=== PATIENT | male | born 1955 | race Caucasian/White ===

== ENCOUNTER 2024-01-26 08:09 | Outpatient (OUT) | payer OTHER, SELFPAY ==
[2024-01-26 08:47] LABS: Basophils Percent Auto 0.5 % (0.2-2.0); Eosinophils Absolute Auto 0.5 10^3/uL (0.0-0.7); Eosinophils Percent Auto 6.6 % (0.9-7.0); Hemoglobin 14.6 g/dL (14.0-18.0); Immature Granulocytes Abs Auto 0.05 10^3/uL (0.00-0.03); Immature Granulocytes Pct Auto 0.6 % (0.0-0.5); Lymphocytes Absolute Auto 2.8 10^3/uL (1.2-3.8); Lymphocytes Percent Auto 35.4 % (20.5-60.0); Mean Corpuscular Hemoglobin 34.8 pg (25.9-34.0); Mean Corpuscular Volume 102.6 fL (80.0-94.0); Mean Platelet Volume 9.8 fL (9.5-13.5); Monocytes Absolute Auto 0.8 10^3/uL (0.3-0.8); Monocytes Percent Auto 9.5 % (1.7-12.0); Neutrophils Absolute Auto 3.8 10^3/uL (1.4-6.5); Neutrophils Percent Auto 47.4 % (43.0-75.0); Platelet Count 326 10^3/uL (150-450); Red Blood Count 4.19 10^6/uL (4.70-6.10); Red Cell Distribution Width 12.9 % (11.0-15.0)
[2024-01-26 09:26] LABS: Alanine Aminotransferase 26 U/L (16-63); Albumin Globulin Ratio 1.1; Albumin Level 3.7 g/dL (3.4-5.0); Alkaline Phosphatase 83 U/L (46-116); Anion Gap 11.8; Aspartate Amino Transferase 16 U/L (15-37); BUN Creatinine Ratio 19.8; Bilirubin Total 0.6 mg/dL (0.2-1.0); Calcium 9.1 mg/dL (8.5-10.1); Carbon Dioxide 30.9 mmol/L (21.0-32.0); Chloride 106 mmol/L (98-107); Chol HDL Ratio 2.9; Cholesterol 160 mg/dL (<=200); Estimated GFR (African America >60 (>=60); Estimated GFR (Non-African Ame >60 (>=60); Globulin 3.3 g/dL; Glucose 96 mg/dL (74-106); HDL Cholesterol 55 mg/dL (40-60); LDL Cholesterol Calculated 85.8 mg/dL; Potassium 4.7 mmol/L (3.5-5.1); Sodium 144 mmol/L (136-145); Triglycerides 96 mg/dL (<=150); VLDL CHOLESTEROL 19.2 mg/dL
[2024-01-26 09:47] LABS: Prostate Specific Antigen Scrn 0.77 ng/mL (<=4.00)
== END 2024-01-26 08:10 | disposition home or self-care (01) ==
LOC: LAB 08:14
PROVIDERS: PCP Internal Medicine; Visit Provider Internal Medicine
DX: Z00.00 Encounter for general adult medical examination without abnormal findings (principal)
CPT/HCPCS: 36415; 80053; 80061; 85025; G0103

== ENCOUNTER 2024-02-14 08:13 | Outpatient (OUT) | payer OTHER, SELFPAY ==
--- OUTSIDE RECORDS SUMMARY | 2024-02-14 08:15 | XMS_ITS | CCD ---
Author Organization [facility] Care Team Providers Care Humane Agent Name Role Phone JULI, DR JAMES Admitting Sharona GONZALES, DR JAMES Attending Unavailable JULI, DR JAMES Primary Care Unavailable JULI, DR JAMES Consulting Manan Greene Unavailable Medications Current Medications Medication Drug Class(es) Dates Sig (Normalized) Sig (Original) doxycycline hyclate 100 mg oral capsule (1 source) Tetracycline-clas s Drug Start: 09-27-2023 take 1 capsule by mouth every twelve hours Doxycycline Hyclate 100 MG 1 capsule Orally Twice a day for 7 days Sep, Active 24 hr metoprolol succinate 25 mg extended release oral tablet (1 source) beta-Adrenergic Noman Start: 04-27-2022 take 1 tablet by mouth once daily Metoprolol Succinate ER 25 MG Metoprolol Succinate ER 25MG, Tablet Tablet daily # 45, 04/27/2022, Ref. x3. Active Oral daily for 0 Apr, Active Problems Active Problems Problem Classification Problem Date Documented Date Episodic/Chronic Acute bronchitis (2 sources) Acute bronchitis; Translations: [Acute bronchitis due to other specified organisms] Episodic Cardiac dysrhythmias (2 sources) Paroxysmal atrial fibrillation; Translations: [Paroxysmal atrial fibrillation] Onset: 01-31-2019 Chronic Chronic obstructive pulmonary disease and bronchiectasis (7 sources) Chronic obstructive pulmonary disease with acute lower respiratory infection; Translations: [Chronic obstructive pulmonary disease with (acute) lower respiratory infection] Onset: 01-31-2019 Chronic Conditions associated with dizziness or vertigo (2 sources) Benign paroxysmal positional vertigo; Translations: [Benign paroxysmal vertigo, bilateral] Onset: 05-21-2019 Episodic Essential hypertension (2 sources) Essential hypertension; Translations: [Essential (primary) hypertension] Chronic Late effects of cerebrovascular disease (2 sources) Residual cognitive deficit as late effect of cerebrovascular accident; Translations: [Unspecified symptoms and signs involving cognitive functions following cerebral infarction] Chronic Other circulatory disease (1 source) H/O: cardiovascular disease; Translations: [Personal history of other diseases of the circulatory system] Episodic Other circulatory disease (2 sources) History of cerebrovascular accident without residual deficits; Translations: [Personal history of transient ischemic attack (TIA), and cerebral infarction without residual deficits] Episodic Other circulatory disease (1 source) H/O: atrial fibrillation; Translations: [Personal history of other diseases of the circulatory system] Episodic Other hematologic conditions (1 source) Other specified diseases of blood and blood-forming organs; Translations: [Other specified diseases of blood and blood-forming organs] Onset: 05-06-2019 Chronic Other hereditary and degenerative nervous system conditions (1 source) Cerebellar ataxia; Translations: [Other cerebellar ataxia] Onset: 03-02-2019 Chronic Other injuries and conditions due to external causes (1 source) H/O: injury; Translations: [Personal history of other (healed) physical injury and trauma] Episodic Other nervous system disorders (1 source) Paresthesia; Translations: [Paresthesia of skin] Episodic Other nervous system disorders (1 source) Abnormal gait; Translations: [Unsteadiness on feet] Episodic Other nervous system disorders (1 source) Unsteadiness on feet; Translations: [Unsteady] Episodic Other nervous system disorders (1 source) Skin sensation disturbance; Translations: [Paresthesia of skin] Episodic Other upper respiratory disease (2 sources) Singers' nodes; Translations: [Nodules of vocal cords] Episodic Spondylosis; intervertebral disc disorders; other back problems (2 sources) Cervical spondylosis without myelopathy; Translations: [Other spondylosis with radiculopathy, cervical region] Chronic Substance-related disorders (3 sources) Tobacco user; Translations: [Nicotine dependence, cigarettes, uncomplicated] Onset: 02-04-2019 Chronic Unclassified (1 source) Exposure to acute respiratory syndrome coronavirus 2; Translations: [Contact with and (suspected) exposure to COVID-19] Past or Other Problems Problem Classification Problem Date Documented Da te Episodic/Chronic Administrative/social admission (1 source) Problem related to life management difficulty; Translations: [Other problems related to lifestyle] Onset: 07-03-2019 Episodic Bacterial infection; unspecified site (1 source) Bacterial infectious disease; Translations: [Bacterial infection, unspecified, in conditions classified elsewhere and of unspecified site] Onset: 02-11-2019 Episodic Disorders of lipid metabolism (1 source) Familial hypercholesterolemi a; Translations: [Familial hypercholesterolemi a] Resolved: 12-24-2020 Chronic Headache; including migraine (1 source) Headache; Translations: [Headache, unspecified] Onset: 05-06-2019 Episodic Malaise and fatigue (1 source) Malaise and fatigue; Translations: [Other malaise and fatigue] Onset: 05-06-2019 Episodic Other circulatory disease (1 source) Elevated blood-pressure reading without diagnosis of hypertension; Translations: [Elevated blood-pressure reading, without diagnosis of hypertension] Onset: 02-04-2019 Episodic Other nervous system disorders (1 source) Altered sensation of skin; Translations: [Disturbance of skin sensation] Onset: 05-06-2019 Episodic Other screening for suspected conditions (not mental disorders or infectious disease) (2 sources) Encounter for screening for malignant neoplasm of prostate; Translations: [Blood chemistry abnormal] Onset: 06-19-2022 Resolved: 11-10-2020 Episodic Other upper respiratory infections (1 source) Acute maxillary sinusitis; Translations: [Acute maxillary sinusitis, unspecified] Onset: 02-11-2019 Episodic Unclassified (1 source) 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 Diego Benitez Basophils/100 WBC (Bld) 0.7 % Normal 0.2-2.0 [facility] Comment on above: Performed By: #### C BC #### [facility] [address] [address] [address] Diego Benitez EO # 0.5 103/ul Normal 0.0-0.7 [facility] Comment on above: Performed By: #### C BC #### [facility] [address] [place] [address] Dr. Diego Benitez Eosinophils/100 WBC (Bld) 5.4 % Normal 0.9-7.0 [facility] Comment on above: Performed By: #### C BC #### [facility] [address] [place] [address] Dr. Diego Benitez Erythrocyte distribution width (RBC) [Ratio] 12.8 % Normal 11.0-15.0 [facility] Comment on above: Performed By: #### C BC #### [facility] [address] [place] [address] Dr. Diego Benitez Hematocrit (Bld) [Volume fraction] 43.5 % Normal 42.0-54.0 [facility] Comment on above: Performed By: #### C BC #### [facility] [address] [place] [address] Dr. Diego Benitez Hemoglobin (Bld) [Mass/Vol] 15.1 g/dL Normal 14.0-18.0 [facility] Comment on above: Performed By: #### C BC #### [facility] [address] [place] [address] Dr. Diego Benitez IG # 0.03 10e3/ul Normal 0.00-0.03 [facility] Comment on above: Performed By: #### C BC #### [facility] [address] [place] [address] Dr. Diego Benitez IG % 0.3 % Normal 0.0-0.5 [facility] Comment on above: Performed By: #### C BC #### [facility] [address] [place] [address] Dr. Diego Benitez LYMPH # 2.8 103/ul Normal 1.2-3.8 [facility] Comment on above: Performed By: #### C BC #### [facility] [address] [place] [address] Dr. Diego Benitez Lymphocytes/100 WBC (Bld) 32.5 % Normal 20.5-60.0 [facility] Comment on above: Performed By: #### C BC #### [facility] [address] [place] [address] Dr. Diego Benitez MANUAL DIFF REQ NO Normal [facility] Comment on above: Performed By: #### C BC #### [facility] [address] [address] [address] Diego Benitez MCH (RBC) [Entitic mass] 34.7 pg Critically high 25.9-34.0 [facility] Comment on above: Performed By: #### C BC #### [facility] [address] [address] [address] Diego Benitez MCHC (RBC) [Mass/Vol] 34.7 g/dL Normal 29.9-35.2 [facility] Comment on above: Performed By: #### C BC #### [facility] [address] [address] [address] Diego Benitez MCV (RBC) [Entitic vol] 100.0 fL Critically high 80.0-94.0 [facility] Comment on above: Performed By: #### C BC #### [facility] [address] [place] [address] Dr. Diego Benitez MONO # 0.9 103/ul Critically high 0.3-0.8 [facility] Comment on above: Performed By: #### C BC #### [facility] [address] [place] [address] Dr. Diego Benitez Monocytes/100 WBC (Bld) 10.1 % Normal 1.7-12.0 [facility] Comment on above: Performed By: #### C BC #### [facility] [address] [place] [address] Dr. Diego Benitez NEUT # 4.4 103/ul Normal 1.4-6.5 [facility] Comment on above: Performed By: #### C BC #### [facility] [address] [place] [address] Dr. Diego Benitez Neutrophils/100 WBC (Bld) 51.0 % Normal 43.0-75.0 [facility] Comment on above: Performed By: #### C BC #### [facility] [address] [place] [address] Dr. Diego Benitez Platelet mean volume (Bld) [Entitic vol] 9.7 fL Normal 9.5-13.5 [facility] Comment on above: Performed By: #### C BC #### [facility] [address] [address] [address] Diego Benitez PLT 329 103/ul Normal 150-450 [facility] Comment on above: Performed By: #### C BC #### [facility] [address] [address] [address] Diego Benitez RBC 4.35 106/ul Critically low 4.70-6.10 [facility] Comment on above: Performed By: #### C BC #### [facility] [address] [address] [address] Diego Benitez WBC 8.6 103/ul Normal 4.0-11.0 [facility] Comment on above: Performed By: #### C BC #### [facility] [address] [place] [address] Dr. Diego Benitez LIPID PROFILEon 06-14-2022 CHOL-HDL RATIO NORM SEE BELOW Normal [facility] Comment on above: Result Comment: 3.3 - 4.4 LOW RISK 4.4 - 7.1 AVERAGE RISK 7.1 - 11.0 MODERATE RISK >11.0 HIGH RISK Performed By: #### L IPID, CMP #### [facility] [address] [place] [address] Dr. Diego Benitez Cholesterol [Mass/Vol] 155 mg/dL Normal <=200 [facility] Comment on above: Performed By: #### L IPID, CMP #### [facility] [address] [place] [address] Dr. Diego Benitez Cholesterol in HDL [Mass/Vol] 51 mg/dL Normal 40-60 [facility] Comment on above: Performed By: #### L IPID, CMP #### [facility] [address] [place] [address] Dr. Diego Benitez Cholesterol in LDL [Mass/Vol] 87.2 mg/dL Normal [facility] Comment on above: Performed By: #### L IPID, CMP #### [facility] [address] [place] [address] Dr. Diego Benitez Cholesterol.total/Cho lesterol in HDL [Mass ratio] 3.0 {ratio} Normal [facility] Comment on above: Performed By: #### L IPID, CMP #### [facility] [address] [address] [address] Diego Benitez HDL NORMAL > or = 60 mg/dl - LOW CARDIOVASCULAR RISK <40 mg/dl - HIGH CARDIOVASCULAR RISK Normal [facility] Comment on above: Performed By: #### L IPID, CMP #### [facility] [address] [address] [address] Diego Benitez LDL CALC NORMAL SEE BELOW Normal [facility] Comment on above: Result Comment: <100 mg/dl OPTIMAL 100 - 129 mg/dl NEAR OR ABOVE OPTIMAL 130 - 159 mg/dl BORDERLINE HIGH 160 - 189 mg/dl HIGH >190 mg/dl VERY HIGH Performed By: #### L IPID, CMP #### [facility] [address] [address] [address] Diego Benitez Triglyceride [Mass/Vol] 84 mg/dL Normal <=150 [facility] Comment on above: Performed By: #### L IPID, CMP #### [facility] [address] [address] [address] Diego Benitez VLDL CALC 16.8 mg/dL Normal [facility] Comment on above: Performed By: #### L IPID, CMP #### [facility] [address] [address] [address] Diego Benitez PROF 14(COMP METB)on 022 Albumin [Mass/Vol] 4.1 g/dL Normal 3.4-5.0 [facility] Comment on above: Performed By: #### L IPID, CMP #### [facility] [address] [address] [address] Diego Benitez Albumin/Globulin [Mass ratio] 1.5 {ratio} Normal [facility] Comment on above: Performed By: #### L IPID, CMP #### [facility] [address] [address] [address] Diego Benitez ALP [Catalytic activity/Vol] 86 U/L Normal 46-116 [facility] Comment on above: Performed By: #### L IPID, CMP #### [facility] [address] [address] [address] Diego Benitez ALT [Catalytic activity/Vol] 20 U/L Normal 16-63 [facility] Comment on above: Performed By: #### L IPID, CMP #### [facility] [address] [address] [address] Diego Benitez Anion gap [Moles/Vol] 12.0 mmol/L Normal [facility] Comment on above: Performed By: #### L IPID, CMP #### [facility] [address] [address] [address] Diego Benitez AST [Catalytic activity/Vol] 16 U/L Normal 15-37 [facility] Comment on above: Performed By: #### L IPID, CMP #### [facility] [address] [address] [address] Diego Benitez Bilirubin [Mass/Vol] 0.7 mg/dL Normal 0.2-1.0 [facility] Comment on above: Performed By: #### L IPID, CMP #### [facility] [address] [address] [address] Diego Benitez Calcium [Mass/Vol] 9.2 mg/dL Normal 8.5-10.1 [facility] Comment on above: Performed By: #### L IPID, CMP #### [facility] [address] [address] [address] Diego Benitez Chloride [Moles/Vol] 106 mmol/L Normal 98-107 [facility] Comment on above: Performed By: #### L IPID, CMP #### [facility] [address] [address] [address] Diego Benitez CO2 [Moles/Vol] 27.3 mmol/L Normal 21.0-32.0 [facility] Comment on above: Performed By: #### L IPID, CMP #### [facility] [address] [address] [address] Deigo Benitez Creatinine [Mass/Vol] 1.13 mg/dL Normal 0.70-1.30 [facility] Comment on above: Performed By: #### L IPID, CMP #### [facility] [address] [address] [address] Diego Benitez EGFR-AF CYMRAES >60 Normal >=60 [facility] Comment on above: Performed By: #### L IPID, CMP #### [facility] [address] [address] [address] Diego Benitez EGFR-NON AF CYMRAES >60 Normal >=60 [facility] Comment on above: Performed By: #### L IPID, CMP #### [facility] [address] [address] [address] Diego Benitez Globulin (S) [Mass/Vol] 2.8 g/dL Normal [facility] Comment on above: Performed By: #### L IPID, CMP #### [facility] [address] [address] [address] Diego Benitez Glucose [Mass/Vol] 100 mg/dL Normal 74-106 [facility] Comment on above: Performed By: #### L IPID, CMP #### [facility] [address] [address] [address] Diego Benitez Potassium [Moles/Vol] 4.3 mmol/L Normal 3.5-5.1 [facility] Comment on above: Performed By: #### L IPID, CMP #### [facility] [address] [address] [address] Diego Benitez Protein [Mass/Vol] 6.9 g/dL Normal 6.4-8.2 [facility] Comment on above: Performed By: #### L IPID, CMP #### [facility] [address] [address] [address] Diego Benitez Sodium [Moles/Vol] 141 mmol/L Normal 136-145 [facility] Comment on above: Performed By: #### L IPID, CMP #### [facility] [address] [address] [address] Diego Benitez Urea nitrogen [Mass/Vol] 19.0 mg/dL Critically high 7.0-18.0 [facility] Comment on above: Performed By: #### L IPID, CMP #### [facility] [address] [address] [address] Diego Benitez Urea nitrogen/Creatinine [Mass ratio] 16.8 mg/mg Normal [facility] Comment on above: Performed By: #### L IPID, CMP #### [facility] [address] [address] [address] Diego Benitez A1C with Estimated Average G luon 05-24-2021 Glucose [Mass/Vol] 105 mg/dL Normal [facility] Comment on above: Result Comment: PERF ORMED BY: [place] [address] PATHOLOGIST GALLERY INTERN SHANA LUZ M.D. Performed By: #### T SH3, T4F, A1C WTH eA, ESR, HSCRP, [id number] #### [facility] [address] [place] [address] [place] #### RA, CERULOP, LYME ABS, RPR W RFX, HOMOCYS PL, CHAR CHOICE, VITB6, WEST ESDRAS, EDYTA,URINE, EDYTA SERUM, ZINC,WB, SPE, METH, UPE RAND #### [facility] , HbA1c (Bld) [Mass fraction] 5.3 % Normal 4.3-5.[address] [facility] Comment on above: Result Comment: Incr eased risk for diabetes: 5.7 - 6.4 diabetes: >6.4 glycemic control for adults with diabetes: <7.0 Performed By: #### T SH3, T4F, A1C WTH eA, ESR, HSCRP, [id number] #### [facility] [address] [place] [address] [place] #### RA, CERULOP, LYME ABS, RPR W RFX, HOMOCYS PL, CHAR CHOICE, VITB6, WEST ESDRAS, EDYTA,URINE, EDYTA SERUM, ZINC,WB, SPE, METH, UPE RAND #### [facility] , CHAR with Reflexon 05-24-2021 CHAR with Reflex Negative Normal Negative [facility] Comment on above: Order Comment: Speci men Comment: Test(s) [id number], Whole Blood Specimen Comment: was developed and its performance characteristics Specimen Comment: determined by [facility]. It has not been cleared or approved Specimen Comment: by the Food and Drug Administration. Specimen Comment: Test(s) [id number] B6 Specimen Comment: was developed and its performance characteristics Specimen Comment: determined by [facility]. It has not been cleared or approved Specimen Comment: by the Food and Drug Administration. Result Comment: Perf ormed at: [address] [id number] Network Strategist: Mikal Blanchard PhD, Phone: [phone] Performed By: #### T SH3, T4F, A1C WTH eA, ESR, HSCRP, [id number] #### [facility] [address] [place] [address] #### RA, CERULOP, LYME ABS, RPR W RFX, HOMOCYS PL, CHAR CHOICE, VITB6, WEST ESDRAS, EDYTA,URINE, EDYTA SERUM, ZINC,WB, SPE, METH, UPE RAND #### [facility] , Ceruloplasminon 05-24-2021 Ceruloplasmin 19.1 mg/dL Normal 16.0-31.[address] [facility] Comment on above: Order Comment: Speci men Comment: Test(s) [id number], Whole Blood Specimen Comment: was developed and its performance characteristics Specimen Comment: determined by [facility]. It has not been cleared or approved Specimen Comment: by the Food and Drug Administration. Specimen Comment: Test(s) [id number] B6 Specimen Comment: was developed and its performance characteristics Specimen Comment: determined by [facility]. It has not been cleared or approved Specimen Comment: by the Food and Drug Administration. Result Comment: Perf ormed at: [address] [id number] Network Strategist: Mikal Blanchard PhD, Phone: [phone] Performed By: #### T SH3, T4F, A1C WTH eA, ESR, HSCRP, [id number] #### [facility] [address] [place] [address] #### RA, CERULOP, LYME ABS, RPR W RFX, HOMOCYS PL, CHAR CHOICE, VITB6, WEST ESDRAS, EDYTA,URINE, EDYTA SERUM, ZINC,WB, SPE, METH, UPE RAND #### [facility] , Erythrocyte Sedimentation Ra celeste 05-24-2021 ESR (Bld) [Velocity] 2 mm/h Normal 0-19 [facility] Comment on above: Result Comment: PERF ORMED BY: [place] [address] PATHOLOGIST GALLERY INTERN SHANA LUZ M.D. Performed By: #### T SH3, T4F, A1C WTH eA, ESR, HSCRP, [id number] #### [address] #### RA, CERULOP, LYME ABS, RPR W RFX, HOMOCYS PL, CHAR CHOICE, VITB6, WEST ESDRAS, EDYTA,URINE, EDYTA SERUM, ZINC,WB, SPE, METH, UPE RAND #### [facility] , Free T4 (Free Thyroxine)on 0 05-24-2021 Free T4 [Mass/Vol] 0.82 ng/dL Normal 0.61-1.12 [facility] Comment on above: Performed By: #### T SH3, T4F, A1C WTH eA, ESR, HSCRP, [id number] #### [facility] [address] [place] [address] #### RA, CERULOP, LYME ABS, RPR W RFX, HOMOCYS PL, CHAR CHOICE, VITB6, WEST ESDRAS, EDYTA,URINE, EDYTA SERUM, ZINC,WB, SPE, METH, UPE RAND #### [facility] , High Sensitive CRPon 021 High Sensitive CRP 0.5 mg/L Normal [facility] Comment on above: Result Comment: Card iovascular Risk Classification (AHA/CDC) hsCRP < 1.0 mg/l low relative risk for CVD hsCRP 1.0-3.0 mg/l average relative risk for CVD hsCRP > 3.0 mg/l high relative risk for CVD hsCRP > 7.5 mg/l active inflammation* Two results two weeks apart and averaged provide a more stable estimate of hsCRP level. *hsCRP levels > 7.5 mg/l may suggest infection that can limit the use of this marker for estimation of CVD risk. PERFORMED BY: [place] [address] PATHOLOGIST GALLERY INTERN SHANA LUZ M.D. Performed By: #### T SH3, T4F, A1C WTH eA, ESR, HSCRP, [id number] #### [address] #### RA, CERULOP, LYME ABS, RPR W RFX, HOMOCYS PL, CHAR CHOICE, VITB6, WEST ESDRAS, EDYTA,URINE, EDYTA SERUM, ZINC,WB, SPE, METH, UPE RAND #### [facility] , Homocysteine, Plasma/Serumon 05-24-2021 Homocysteine, Plasma/Serum 12.5 umol/L Normal 0.0-17.[address] [facility] Comment on above: Order Comment: Speci men Comment: Test(s) [id number], Whole Blood Specimen Comment: was developed and its performance characteristics Specimen Comment: determined by [facility]. It has not been cleared or approved Specimen Comment: by the Food and Drug Administration. Specimen Comment: Test(s) [id number] B6 Specimen Comment: was developed and its performance characteristics Specimen Comment: determined by [facility]. It has not been cleared or approved Specimen Comment: by the Food and Drug Administration. Result Comment: Perf ormed at: - [facility] [address] [id number] Network Strategist: Mkial Blanchard PhD, Phone: [phone] Performed By: #### T SH3, T4F, A1C WTH eA, ESR, HSCRP, [id number] #### [place] [address] [place] #### RA, CERULOP, LYME ABS, RPR W RFX, HOMOCYS PL, CHAR CHOICE, VITB6, WEST ESDRAS, EDYTA,URINE, EDYTA SERUM, ZINC,WB, SPE, METH, UPE RAND #### [facility] , Immunofixation, (EDYTA), Urine on 05-24-2021 Immunofixation, (EDYTA), Urine Normal . [facility] Comment on above: Result Comment: No m onoclonality detected. Performed at: [address] [id number] Network Strategist: Mikal Blanchard PhD, Phone: [phone] Performed By: #### T SH3, T4F, A1C WTH eA, ESR, HSCRP, [id number] #### [address] #### RA, CERULOP, LYME ABS, RPR W RFX, HOMOCYS PL, CHAR CHOICE, VITB6, WEST ESDRAS, EDYTA,URINE, EDYTA SERUM, ZINC,WB, SPE, METH, UPE RAND #### [facility] , Immunofixation,Serumon 05-24 Immunofixation, Serum Normal . [facility] Comment on above: Order Comment: Speci men Comment: Test(s) 946565-Oabu, Whole Blood Specimen Comment: was developed and its performance characteristics Specimen Comment: determined by [facility]. It has not been cleared or approved Specimen Comment: by the Food and Drug Administration. Specimen Comment: Test(s) 824017-Qipwliq B6 Specimen Comment: was developed and its performance characteristics Specimen Comment: determined by [facility]. It has not been cleared or approved Specimen Comment: by the Food and Drug Administration. Result Comment: No m onoclonality detected. Performed By: #### T SH3, T4F, A1C WTH eA, ESR, HSCRP, [id number] #### [place] [address] [place] #### RA, CERULOP, LYME ABS, RPR W RFX, HOMOCYS PL, CHAR CHOICE, VITB6, WEST ESDRAS, EDYTA,URINE, EDYTA SERUM, ZINC,WB, SPE, METH, UPE RAND #### [facility] , Immunoglobulin A, Serum 120 mg/dL Normal 61-[address] [facility] Comment on above: Order Comment: Speci men Comment: Test(s) 031636-Ylzq, Whole Blood Specimen Comment: was developed and its performance characteristics Specimen Comment: determined by [facility]. It has not been cleared or approved Specimen Comment: by the Food and Drug Administration. Specimen Comment: Test(s) 220107-Frpctjk B6 Specimen Comment: was developed and its performance characteristics Specimen Comment: determined by [facility]. It has not been cleared or approved Specimen Comment: by the Food and Drug Administration. Performed By: #### T SH3, T4F, A1C WTH eA, ESR, HSCRP, [id number] #### [facility] [address] [place] [address] [place] #### RA, CERULOP, LYME ABS, RPR W RFX, HOMOCYS PL, CHAR CHOICE, VITB6, WEST ESDRAS, EDYTA,URINE, EDYTA SERUM, ZINC,WB, SPE, METH, UPE RAND #### [facility] , Immunoglobulin G 787 mg/dL Normal 603-1613 [facility] Comment on above: Order Comment: Speci men Comment: Test(s) 709200-Houa, Whole Blood Specimen Comment: was developed and its performance characteristics Specimen Comment: determined by [facility]. It has not been cleared or approved Specimen Comment: by the Food and Drug Administration. Specimen Comment: Test(s) 104296-Latkask B6 Specimen Comment: was developed and its performance characteristics Specimen Comment: determined by [facility]. It has not been cleared or approved Specimen Comment: by the Food and Drug Administration. Performed By: #### T SH3, T4F, A1C WTH eA, ESR, HSCRP, [id number] #### [facility] [address] [place] [address] [place] #### RA, CERULOP, LYME ABS, RPR W RFX, HOMOCYS PL, CHAR CHOICE, VITB6, WEST ESDRAS, EDYTA,URINE, EDYTA SERUM, ZINC,WB, SPE, METH, UPE RAND #### [facility] , Immunoglobulin M, Serum 84 mg/dL Normal 20-[address] [facility] Comment on above: Order Comment: Speci men Comment: Test(s) 805250-Ymnb, Whole Blood Specimen Comment: was developed and its performance characteristics Specimen Comment: determined by [facility]. It has not been cleared or approved Specimen Comment: by the Food and Drug Administration. Specimen Comment: Test(s) 553528-Nywypqj B6 Specimen Comment: was developed and its performance characteristics Specimen Comment: determined by [facility]. It has not been cleared or approved Specimen Comment: by the Food and Drug Administration. Performed By: #### T SH3, T4F, A1C WTH eA, ESR, HSCRP, [id number] #### [facility] [address] [place] [address] [place] #### RA, CERULOP, LYME ABS, RPR W RFX, HOMOCYS PL, CHAR CHOICE, VITB6, WEST ESDRAS, EDYTA,URINE, EDYTA SERUM, ZINC,WB, SPE, METH, UPE RAND #### [facility] , Lyme, Total Ab/Reflex (IgG+I gMon 05-24-2021 Lyme IgG/IgM Ab <0.91 Normal 0.00-0.[address] [facility] Comment on above: Order Comment: Speci men Comment: Test(s) 366860-Czvi, Whole Blood Specimen Comment: was developed and its performance characteristics Specimen Comment: determined by [facility]. It has not been cleared or approved Specimen Comment: by the Food and Drug Administration. Specimen Comment: Test(s) 579833-Bljpsao B6 Specimen Comment: was developed and its performance characteristics Specimen Comment: determined by [facility]. It has not been cleared or approved Specimen Comment: by the Food and Drug Administration. Result Comment: Nega tive <0.91 Equivocal 0.91 - 1.09 Positive >1.09 Performed at: [address] [id number] Network Strategist: Mikal Blanchard PhD, Phone: [phone] Performed By: #### T SH3, T4F, A1C WTH eA, ESR, HSCRP, [id number] #### [place] [address] [place] #### RA, CERULOP, LYME ABS, RPR W RFX, HOMOCYS PL, CHAR CHOICE, VITB6, WEST ESDRAS, EDYTA,URINE, EDYTA SERUM, ZINC,WB, SPE, METH, UPE RAND #### [facility] , Methylmalonic Acidon 021 Methylmalonic Acid 276 Normal 0-378 [facility] Comment on above: Order Comment: Speci men Comment: Test(s) 378678-Dblw, Whole Blood Specimen Comment: was developed and its performance characteristics Specimen Comment: determined by [facility]. It has not been cleared or approved Specimen Comment: by the Food and Drug Administration. Specimen Comment: Test(s) 715513-Rrqxghq B6 Specimen Comment: was developed and its performance characteristics Specimen Comment: determined by [facility]. It has not been cleared or approved Specimen Comment: by the Food and Drug Administration. Performed By: #### T SH3, T4F, A1C WTH eA, ESR, HSCRP, [id number] #### [facility] [address] [place] [address] #### RA, CERULOP, LYME ABS, RPR W RFX, HOMOCYS PL, CHAR CHOICE, VITB6, WEST ESDRAS, EDYTA,URINE, EDYTA SERUM, ZINC,WB, SPE, METH, UPE RAND #### [facility] , Methylmalonic Acid Disclaimer Normal . [facility] Comment on above: Order Comment: Speci men Comment: Test(s) 341064-Tati, Whole Blood Specimen Comment: was developed and its performance characteristics Specimen Comment: determined by [facility]. It has not been cleared or approved Specimen Comment: by the Food and Drug Administration. Specimen Comment: Test(s) 544046-Azbicnd B6 Specimen Comment: was developed and its performance characteristics Specimen Comment: determined by [facility]. It has not been cleared or approved Specimen Comment: by the Food and Drug Administration. Result Comment: This test was developed and its performance characteristics determined by [facility]. It has not been cleared or approved by the Food and Drug Administration. Performed at: [address] [id number] Network Strategist: Cony Hubbard MD, Phone: [phone] Performed By: #### T SH3, T4F, A1C WTH eA, ESR, HSCRP, [id number] #### [facility] [address] [place] [address] #### RA, CERULOP, LYME ABS, RPR W RFX, HOMOCYS PL, CHAR CHOICE, VITB6, WEST ESDRAS, EDYTA,URINE, EDYTA SERUM, ZINC,WB, SPE, METH, UPE RAND #### [facility] , Protein Electro, Random Urin saad 05-24-2021 Albumin, Urine 39.3 % Normal . [facility] Comment on above: Performed By: #### T SH3, T4F, A1C WTH eA, ESR, HSCRP, [id number] #### [facility] [address] [place] [address] #### RA, CERULOP, LYME ABS, RPR W RFX, HOMOCYS PL, CHAR CHOICE, VITB6, WEST ESDRAS, EDYTA,URINE, EDYTA SERUM, ZINC,WB, SPE, METH, UPE RAND #### [facility] , Otrya-1-Fpycttyx, Urine 0.9 % Normal . [facility] Comment on above: Performed By: #### T SH3, T4F, A1C WTH eA, ESR, HSCRP, [id number] #### [facility] [address] [place] [address] #### RA, CERULOP, LYME ABS, RPR W RFX, HOMOCYS PL, CHAR CHOICE, VITB6, WEST ESDRAS, EDYTA,URINE, EDYTA SERUM, ZINC,WB, SPE, METH, UPE RAND #### [facility] , Hakcp-5-Fhncgpwq, Urine 17.5 % Normal . [facility] Comment on above: Performed By: #### T SH3, T4F, A1C WTH eA, ESR, HSCRP, [id number] #### [facility] [address] [place] [address] [place] #### RA, CERULOP, LYME ABS, RPR W RFX, HOMOCYS PL, CHAR CHOICE, VITB6, WEST ESDRAS, EDYTA,URINE, EDYTA SERUM, ZINC,WB, SPE, METH, UPE RAND #### [facility] , Beta Globulin, Urine 27.3 % Normal . [facility] Comment on above: Performed By: #### T SH3, T4F, A1C WTH eA, ESR, HSCRP, [id number] #### [address] #### RA, CERULOP, LYME ABS, RPR W RFX, HOMOCYS PL, CHAR CHOICE, VITB6, WEST ESDRAS, EDYTA,URINE, EDYTA SERUM, ZINC,WB, SPE, METH, UPE RAND #### [facility] , Gamma Globulin, Urine 15.0 % Normal . [facility] Comment on above: Performed By: #### T SH3, T4F, A1C WTH eA, ESR, HSCRP, [id number] #### [place] [address] [place] #### RA, CERULOP, LYME ABS, RPR W RFX, HOMOCYS PL, CHAR CHOICE, VITB6, WEST ESDRAS, EDYTA,URINE, EDYTA SERUM, ZINC,WB, SPE, METH, UPE RAND #### [facility] , M-Jose M % Not Observed Normal Not Observed [facility] Comment on above: Performed By: #### T SH3, T4F, A1C WTH eA, ESR, HSCRP, [id number] #### [place] [address] [place] #### RA, CERULOP, LYME ABS, RPR W RFX, HOMOCYS PL, CHAR CHOICE, VITB6, WEST ESDRAS, EDYTA,URINE, EDYTA SERUM, ZINC,WB, SPE, METH, UPE RAND #### [facility] , Please Note: Normal . [facility] Comment on above: Result Comment: Prot ein electrophoresis scan will follow via computer, mail, or chocolate dipper delivery. Performed at: [address] [id number] Network Strategist: Mikal Blanchard PhD, Phone: [phone] PERFORMED BY: [place] [address] PATHOLOGIST GALLERY INTERN SHANA LUZ M.D. Performed By: #### T SH3, T4F, A1C WTH eA, ESR, HSCRP, [id number] #### [place] [address] [place] #### RA, CERULOP, LYME ABS, RPR W RFX, HOMOCYS PL, CHAR CHOICE, VITB6, WEST ESDRAS, EDYTA,URINE, EDYTA SERUM, ZINC,WB, SPE, METH, UPE RAND #### [facility] , Protein (U) [Mass/Vol] 4.7 mg/dL Normal Not Estab. [facility] Comment on above: Performed By: #### T SH3, T4F, A1C WTH eA, ESR, HSCRP, [id number] #### [place] [address] [place] #### RA, CERULOP, LYME ABS, RPR W RFX, HOMOCYS PL, CHAR CHOICE, VITB6, WEST ESDRAS, EDYTA,URINE, EDYTA SERUM, ZINC,WB, SPE, METH, UPE RAND #### [facility] , Protein Electrophoresis, Ser umon 05-24-2021 Albumin [Mass/Vol] 4.0 g/dL Normal 2.9-4.4 [facility] Comment on above: Order Comment: Speci men Comment: Test(s) 988465-Raye, Whole Blood Specimen Comment: was developed and its performance characteristics Specimen Comment: determined by [facility]. It has not been cleared or approved Specimen Comment: by the Food and Drug Administration. Specimen Comment: Test(s) 867534-Jmsvooz B6 Specimen Comment: was developed and its performance characteristics Specimen Comment: determined by [facility]. It has not been cleared or approved Specimen Comment: by the Food and Drug Administration. Performed By: #### T SH3, T4F, A1C WTH eA, ESR, HSCRP, [id number] #### [place] [address] [place] #### RA, CERULOP, LYME ABS, RPR W RFX, HOMOCYS PL, CHAR CHOICE, VITB6, WEST ESDRAS, EDYTA,URINE, EDYTA SERUM, ZINC,WB, SPE, METH, UPE RAND #### [facility] , Albumin/Globulin [Mass ratio] 1.7 {ratio} Normal 0.7-1.[address] [facility] Comment on above: Order Comment: Speci men Comment: Test(s) 729495-Drbu, Whole Blood Specimen Comment: was developed and its performance characteristics Specimen Comment: determined by [facility]. It has not been cleared or approved Specimen Comment: by the Food and Drug Administration. Specimen Comment: Test(s) 882649-Lxgtyzz B6 Specimen Comment: was developed and its performance characteristics Specimen Comment: determined by [facility]. It has not been cleared or approved Specimen Comment: by the Food and Drug Administration. Performed By: #### T SH3, T4F, A1C WTH eA, ESR, HSCRP, [id number] #### [place] [address] [place] #### RA, CERULOP, LYME ABS, RPR W RFX, HOMOCYS PL, CHAR CHOICE, VITB6, WEST ESDRAS, EDYTA,URINE, EDYTA SERUM, ZINC,WB, SPE, METH, UPE RAND #### [facility] , Htydh-5-Bxtoaqrr 0.2 g/dL Normal 0.0-0.4 [facility] Comment on above: Order Comment: Speci men Comment: Test(s) 008199-Tirg, Whole Blood Specimen Comment: was developed and its performance characteristics Specimen Comment: determined by [facility]. It has not been cleared or approved Specimen Comment: by the Food and Drug Administration. Specimen Comment: Test(s) 048356-Varudtb B6 Specimen Comment: was developed and its performance characteristics Specimen Comment: determined by [facility]. It has not been cleared or approved Specimen Comment: by the Food and Drug Administration. Performed By: #### T SH3, T4F, A1C WTH eA, ESR, HSCRP, [id number] #### [place] [address] [place] #### RA, CERULOP, LYME ABS, RPR W RFX, HOMOCYS PL, CHAR CHOICE, VITB6, WEST ESDRAS, EDYTA,URINE, EDYTA SERUM, ZINC,WB, SPE, METH, UPE RAND #### [facility] , Mizhr-7-Wzlokxjy 0.6 g/dL Normal 0.4-1.0 [facility] Comment on above: Order Comment: Speci men Comment: Test(s) 909963-Leia, Whole Blood Specimen Comment: was developed and its performance characteristics Specimen Comment: determined by [facility]. It has not been cleared or approved Specimen Comment: by the Food and Drug Administration. Specimen Comment: Test(s) 764859-Orbtjyu B6 Specimen Comment: was developed and its performance characteristics Specimen Comment: determined by [facility]. It has not been cleared or approved Specimen Comment: by the Food and Drug Administration. Performed By: #### T SH3, T4F, A1C WTH eA, ESR, HSCRP, [id number] #### [place] [address] [place] #### RA, CERULOP, LYME ABS, RPR W RFX, HOMOCYS PL, CHAR CHOICE, VITB6, WEST ESDRAS, EDYTA,URINE, EDYTA SERUM, ZINC,WB, SPE, METH, UPE RAND #### [facility] , Beta Globulin 0.8 g/dL Normal 0.7-1.[address] [facility] Comment on above: Order Comment: Speci men Comment: Test(s) 759407-Fzsf, Whole Blood Specimen Comment: was developed and its performance characteristics Specimen Comment: determined by [facility]. It has not been cleared or approved Specimen Comment: by the Food and Drug Administration. Specimen Comment: Test(s) 548648-Bkcqftj B6 Specimen Comment: was developed and its performance characteristics Specimen Comment: determined by [facility]. It has not been cleared or approved Specimen Comment: by the Food and Drug Administration. Performed By: #### T SH3, T4F, A1C WTH eA, ESR, HSCRP, [id number] #### [place] [address] [place] #### RA, CERULOP, LYME ABS, RPR W RFX, HOMOCYS PL, CHAR CHOICE, VITB6, WEST ESDRAS, EDYTA,URINE, EDYTA SERUM, ZINC,WB, SPE, METH, UPE RAND #### [facility] , Gamma Globulin 0.8 g/dL Normal 0.4-1.[address] [facility] Comment on above: Order Comment: Speci men Comment: Test(s) 248358-Lkip, Whole Blood Specimen Comment: was developed and its performance characteristics Specimen Comment: determined by [facility]. It has not been cleared or approved Specimen Comment: by the Food and Drug Administration. Specimen Comment: Test(s) 132210-Semaslw B6 Specimen Comment: was developed and its performance characteristics Specimen Comment: determined by [facility]. It has not been cleared or approved Specimen Comment: by the Food and Drug Administration. Performed By: #### T SH3, T4F, A1C WTH eA, ESR, HSCRP, [id number] #### [place] [address] [place] #### RA, CERULOP, LYME ABS, RPR W RFX, HOMOCYS PL, CHAR CHOICE, VITB6, WEST ESDRAS, EDYTA,URINE, EDYTA SERUM, ZINC,WB, SPE, METH, UPE RAND #### [facility] , Globulin (S) [Mass/Vol] 2.3 g/dL Normal 2.2-3.[address] [facility] Comment on above: Order Comment: Speci men Comment: Test(s) 126128-Dtxa, Whole Blood Specimen Comment: was developed and its performance characteristics Specimen Comment: determined by [facility]. It has not been cleared or approved Specimen Comment: by the Food and Drug Administration. Specimen Comment: Test(s) 604477-Rvpgnut B6 Specimen Comment: was developed and its performance characteristics Specimen Comment: determined by [facility]. It has not been cleared or approved Specimen Comment: by the Food and Drug Administration. Performed By: #### T SH3, T4F, A1C WTH eA, ESR, HSCRP, [id number] #### [place] [address] [place] #### RA, CERULOP, LYME ABS, RPR W RFX, HOMOCYS PL, CHAR CHOICE, VITB6, WEST ESDRAS, EDYTA,URINE, EDYTA SERUM, ZINC,WB, SPE, METH, UPE RAND #### [facility] , M-Jose M Not Observed Normal Not Observed [facility] Comment on above: Order Comment: Speci men Comment: Test(s) 979527-Bzca, Whole Blood Specimen Comment: was developed and its performance characteristics Specimen Comment: determined by [facility]. It has not been cleared or approved Specimen Comment: by the Food and Drug Administration. Specimen Comment: Test(s) 050587-Ozzurnn B6 Specimen Comment: was developed and its performance characteristics Specimen Comment: determined by [facility]. It has not been cleared or approved Specimen Comment: by the Food and Drug Administration. Performed By: #### T SH3, T4F, A1C WTH eA, ESR, HSCRP, [id number] #### [place] [address] [place] #### RA, CERULOP, LYME ABS, RPR W RFX, HOMOCYS PL, CHAR CHOICE, VITB6, WEST ESDRAS, EDYTA,URINE, EDYTA SERUM, ZINC,WB, SPE, METH, UPE RAND #### [facility] , Protein [Mass/Vol] 6.3 g/dL Normal 6.0-8.5 [facility] Comment on above: Order Comment: Speci men Comment: Test(s) 092578-Fxcu, Whole Blood Specimen Comment: was developed and its performance characteristics Specimen Comment: determined by [facility]. It has not been cleared or approved Specimen Comment: by the Food and Drug Administration. Specimen Comment: Test(s) 897365-Gjllmhq B6 Specimen Comment: was developed and its performance characteristics Specimen Comment: determined by [facility]. It has not been cleared or approved Specimen Comment: by the Food and Drug Administration. Performed By: #### T SH3, T4F, A1C WTH eA, ESR, HSCRP, [id number] #### [place] [address] [place] #### RA, CERULOP, LYME ABS, RPR W RFX, HOMOCYS PL, CHAR CHOICE, VITB6, WEST ESDRAS, EDYTA,URINE, EDYTA SERUM, ZINC,WB, SPE, METH, UPE RAND #### [facility] , SPE-Note Normal . [facility] Comment on above: Order Comment: Speci men Comment: Test(s) 627986-Lnik, Whole Blood Specimen Comment: was developed and its performance characteristics Specimen Comment: determined by [facility]. It has not been cleared or approved Specimen Comment: by the Food and Drug Administration. Specimen Comment: Test(s) 849945-Glawsvc B6 Specimen Comment: was developed and its performance characteristics Specimen Comment: determined by [facility]. It has not been cleared or approved Specimen Comment: by the Food and Drug Administration. Result Comment: Prot ein electrophoresis scan will follow via computer, mail, or chocolate dipper delivery. Performed By: #### T SH3, T4F, A1C WTH eA, ESR, HSCRP, [id number] #### [address] #### RA, CERULOP, LYME ABS, RPR W RFX, HOMOCYS PL, CHAR CHOICE, VITB6, WEST ESDRAS, EDYTA,URINE, EDYTA SERUM, ZINC,WB, SPE, METH, UPE RAND #### [facility] , RPR w/rfx to Quant TP Abson 05-24-2021 RPR, Rfx Quant RPR Non-Reactive Normal Non Reactive Fi [facility] Comment on above: Order Comment: Speci men Comment: Test(s) 238349-Ixqn, Whole Blood Specimen Comment: was developed and its performance characteristics Specimen Comment: determined by [facility]. It has not been cleared or approved Specimen Comment: by the Food and Drug Administration. Specimen Comment: Test(s) 100305-Slnxtvt B6 Specimen Comment: was developed and its performance characteristics Specimen Comment: determined by [facility]. It has not been cleared or approved Specimen Comment: by the Food and Drug Administration. Result Comment: Perf ormed at: - [facility] [address] [id number] Network Strategist: Mikal Blanchard PhD, Phone: [phone] PERFORMED BY: [place] [address] PATHOLOGIST GALLERY INTERN SHANA LUZ M.D. Performed By: #### T SH3, T4F, A1C WTH eA, ESR, HSCRP, [id number] #### [address] #### RA, CERULOP, LYME ABS, RPR W RFX, HOMOCYS PL, CHAR CHOICE, VITB6, WEST ESDRAS, EDYTA,URINE, EDYTA SERUM, ZINC,WB, SPE, METH, UPE RAND #### [facility] , Rheumatoid Factoron 05-24-20 21 Rheumatoid Factor 34.5 High 0.0-13.9 [facility] Comment on above: Order Comment: Speci men Comment: Test(s) 941001-Cgyj, Whole Blood Specimen Comment: was developed and its performance characteristics Specimen Comment: determined by [facility]. It has not been cleared or approved Specimen Comment: by the Food and Drug Administration. Specimen Comment: Test(s) 829160-Pycvsoy B6 Specimen Comment: was developed and its performance characteristics Specimen Comment: determined by [facility]. It has not been cleared or approved Specimen Comment: by the Food and Drug Administration. Performed By: #### T SH3, T4F, A1C WTH eA, ESR, HSCRP, [id number] #### [place] [address] [place] #### RA, CERULOP, LYME ABS, RPR W RFX, HOMOCYS PL, CHAR CHOICE, VITB6, WEST ESDRAS, EDYTA,URINE, EDYTA SERUM, ZINC,WB, SPE, METH, UPE RAND #### [facility] , Thyroid Stimulating Hormoneo n 05-24-2021 TSH Qn 0.69 m[IU]/L Normal 0.45-5.[address] [facility] Comment on above: Result Comment: PERF ORMED BY: [place] [address] PATHOLOGIST GALLERY INTERN SHANA LUZ M.D. Performed By: #### T SH3, T4F, A1C WTH eA, ESR, HSCRP, [id number] #### [place] [address] [place] #### RA, CERULOP, LYME ABS, RPR W RFX, HOMOCYS PL, CHAR CHOICE, VITB6, WEST ESDRAS, EDYTA,URINE, EDYTA SERUM, ZINC,WB, SPE, METH, UPE RAND #### [facility] , Vit. B12/Folate Profileon Cobalamin (Vitamin B12) [Mass/Vol] 348 pg/mL Normal 180-[address] [facility] Comment on above: Performed By: #### T SH3, T4F, A1C WTH eA, ESR, HSCRP, [id number] #### [facility] [address] #### RA, CERULOP, LYME ABS, RPR W RFX, HOMOCYS PL, CHAR CHOICE, VITB6, WEST ESDRAS, EDYTA,URINE, EDYTA SERUM, ZINC,WB, SPE, METH, UPE RAND #### [facility] , Folate > 22.3 Normal >5.[address] [facility] Comment on above: Result Comment: Dory te reference range: >5.9 ng/ml The WHO technical consultation on folate and vitamin b12 deficiencies has determined that folate concentrations less than 4 ng/ml are considered deficient. Performed By: #### T SH3, T4F, A1C WTH eA, ESR, HSCRP, [id number] #### [facility] [address] [place] [address] [place] #### RA, CERULOP, LYME ABS, RPR W RFX, HOMOCYS PL, CHAR CHOICE, VITB6, WEST ESDRAS, EDYTA,URINE, EDYTA SERUM, ZINC,WB, SPE, METH, UPE RAND #### [facility] , Vitamin B6on 05-24-2021 Vitamin B6 16.9 Normal 5.3-46.[address] [facility] Comment on above: Order Comment: Speci men Comment: Test(s) 323926-Npet, Whole Blood Specimen Comment: was developed and its performance characteristics Specimen Comment: determined by [facility]. It has not been cleared or approved Specimen Comment: by the Food and Drug Administration. Specimen Comment: Test(s) 915489-Goecuzm B6 Specimen Comment: was developed and its performance characteristics Specimen Comment: determined by [facility]. It has not been cleared or approved Specimen Comment: by the Food and Drug Administration. Result Comment: Perf ormed at: - [facility] [id number] Network Strategist: Cony Hubbard MD, Phone: [phone] Performed By: #### T SH3, T4F, A1C WTH eA, ESR, HSCRP, [id number] #### [place] [address] [place] #### RA, CERULOP, LYME ABS, RPR W RFX, HOMOCYS PL, CHAR CHOICE, VITB6, WEST ESDRAS, EDYTA,URINE, EDYTA SERUM, ZINC,WB, SPE, METH, UPE RAND #### [facility] , West Nile Virus Antibodies, Son 05-24-2021 West Nile Virus Antibody IgG S Negative Normal Negative [facility] Comment on above: Order Comment: Speci men Comment: Test(s) 914632-Dtoz, Whole Blood Specimen Comment: was developed and its performance characteristics Specimen Comment: determined by [facility]. It has not been cleared or approved Specimen Comment: by the Food and Drug Administration. Specimen Comment: Test(s) 969472-Rfpgajw B6 Specimen Comment: was developed and its performance characteristics Specimen Comment: determined by [facility]. It has not been cleared or approved Specimen Comment: by the Food and Drug Administration. Result Comment: No d etectable West Nile Virus IgG Antibody. If a recent infection is suspected, another specimen should be submitted for testing within 7-14 days. Performed By: #### T SH3, T4F, A1C WTH eA, ESR, HSCRP, [id number] #### [place] [address] [place] #### RA, CERULOP, LYME ABS, RPR W RFX, HOMOCYS PL, CHAR CHOICE, VITB6, WEST ESDRAS, EDYTA,URINE, EDYTA SERUM, ZINC,WB, SPE, METH, UPE RAND #### [facility] , West Nile Virus Antibody IgM S Negative Normal Negative [facility] Comment on above: Order Comment: Speci men Comment: Test(s) [id number], Whole Blood Specimen Comment: was developed and its performance characteristics Specimen Comment: determined by [facility]. It has not been cleared or approved Specimen Comment: by the Food and Drug Administration. Specimen Comment: Test(s) [id number]-Vswbdsx B6 Specimen Comment: was developed and its performance characteristics Specimen Comment: determined by [facility]. It has not been cleared or approved Specimen Comment: by the Food and Drug Administration. Result Comment: No d etectable West Nile Virus IgM Antibody. If a recent infection is suspected, another specimen should be submitted for testing within 7-14 days. Performed at: [address] [id number] Network Strategist: Cony Hubbard MD, Phone: [phone] Performed By: #### T SH3, T4F, A1C WTH eA, ESR, HSCRP, [id number] #### [address] #### RA, CERULOP, LYME ABS, RPR W RFX, HOMOCYS PL, CHAR CHOICE, VITB6, WEST ESDRAS, EDYTA,URINE, EDYTA SERUM, ZINC,WB, SPE, METH, UPE RAND #### [facility] , Zinc, Whole Bloodon 05-24-20 21 Zinc, Whole Blood 706 ug/dL Normal 440-860 [facility] Comment on above: Order Comment: Speci men Comment: Test(s) [id number], Whole Blood Specimen Comment: was developed and its performance characteristics Specimen Comment: determined by [facility]. It has not been cleared or approved Specimen Comment: by the Food and Drug Administration. Specimen Comment: Test(s) [id number]-Eztgdgc B6 Specimen Comment: was developed and its performance characteristics Specimen Comment: determined by [facility]. It has not been cleared or approved Specimen Comment: by the Food and Drug Administration. Result Comment: Perf ormed at: [address] [id number] Network Strategist: Cony Hubbard MD, Phone: [phone] Performed By: #### T SH3, T4F, A1C WTH eA, ESR, HSCRP, [id number] #### [facility] [address] #### RA, CERULOP, LYME ABS, RPR W RFX, HOMOCYS PL, CHAR CHOICE, VITB6, WEST ESDRAS, EDYTA,URINE, EDYTA SERUM, ZINC,WB, SPE, METH, UPE RAND #### [facility] , Lab Reportson 08-27-2020 Lab Reports [id number]#1.00CD:127 Normal [facility] RAD - MISCon 08-27-2020 RAD - MISC [id number] #1.00CD:127 Normal [facility] Physician Referralon 020 Physician Referral [id number] #1.00CD:127 Normal [facility] Formson 08-12-2020 Forms [id number] #1.00CD:127 Normal [facility] Ambulatory Clinical Summaryo n 08-11-2020 Ambulatory Clinical Summary {[id number]}CD:[id number] Normal [facility] Patient Educationon 08-11-20 20 Patient Education Family Medicine Testosterone This test is used to determine if your testosterone level is abnormal. This could be used to explain difficulty getting an erection (erectile dysfunction), inability of your partner to get (infertility ), premature or delayed puberty if you are male, or the appearance of masculine physical features if you are female. PREPARATION FOR TEST A blood sample is obtained by inserting a needle into a vein in the arm. NORMAL FINDINGS ? Free Testosterone: 0.3-2 pg/mL ? % Free Testosterone: 0.1%-0.3% Total Testosterone: ? 7 mos-9 yrs (Adelfo Stage I) ? Male: Less than 30 ng/dL ? Female: Less than 30 ng/dL ? 10-13 yrs (Adelfo Stage II) ? Male: Less than 300 ng/dL ? Female: Less than 40 ng/dL ? 14-15 yrs (Adelfo Stage III) ? Male: 170-540 ng/dL ? Female: Less than 60 ng/dL ? 16-19 yrs (Adelfo Stage IV, V) ? Male: 250-910 ng/dL ? Female: Less than 70 ng/dL ? 20 yrs and over ? Male: 280-1080 ng/dL ? Female: Less than 70 ng/dL Ranges for normal findings may vary among different laboratories and hospitals. You should always check with your doctor after having lab work or other tests done to discuss the meaning of your test results and whether your values are considered within normal limits. MEANING OF TEST Your caregiver will go over the test results with you and discuss the importance and meaning of your results, as well as treatment options and the need for additional tests if necessary. OBTAINING THE TEST RESULTS It is your responsibility to obtain your test results. Ask the lab or department performing the test when and how you will get your results. Document Released: 11/29/2005 Document Revised: 02/03/2013 Document Reviewed: 10/24/2009 ExitCare? Patient Information ?2013 [employer]. Normal [facility] Urology Office/Clinic Noteon 08-11-2020 Urology Office/Clinic Note HPI Staff Pt is here as a referral from Dr. Gonzales due to low testosterone levels. Pt states that his free testosterone level is low. Pt is not on any BPH medications at this time. Recent PSA was done 07/23/20 and was 0.61 and testosterone level is at 772 and free testosterone 6.3. 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 There have been no associated fever, chills, flank pain or blood in the urine. Pt. denies any pain/burning with urination at this time. Review of Systems PHQ Score Initial Depression Screen Score: 0 General: Fevers Denies, Weight Loss Denies, Weakness Denies Skin: Rash Denies, Non-healed Skin Wound Denies Blood: Bruising Denies, Bleeding Denies, Anemia Denies Eyes: Eye Problems Denies Ears: Recent Hearing Problems Denies Respiratory: Cough Denies, Coughing Blood Denies, Shortness of Breath Denies, Respiratory Infections Denies, Loud Snoring Denies Cardiovascular: Chest Pain Denies, Sensation of Irregular Heart Beat Denies Intestinal: Constipation Denies, Diarrhea Denies, Rectal Bleeding/Blood in Stool Denies Hemorrhoids Denies, Indigestion Denies, Nausea Denies, Vomiting Denies Genito-Urinary: Have you ever seen blood in your urine Denies, Have you ever been told there was blood in your urine Denies, Penile Discharge Denies, Penile Bleeding Denies, Leaking Urine (incontinence) Denies, Flank or Kidney Pain Denies, Pain relating to your bladder filling or emptying Denies, Burning with Urination Denies, Urinary Tract Infection Denies Kidney Stone Denies, Sexual Difficulties Denies Muscle-Skeletal: Joint Pain Denies, Back Pain Denies, Muscle Cramps Denies Nervous System: Headaches Denies, Seizures Denies, Blackouts Denies, Numbness Denies Weakness in a certain area of your body Denies, Tingling in a certain area of your body Denies Psychological: Confusion Denies, Anxiety Denies Other Free Text: Physical Exam Vitals & Measurements HR: 73(Peripheral) RR: 18 BP: 132/97 WT: 69.8 kg WT: 69.8 kg General Appearance: alert, no distress, well nourished, well developed male. Head: normocephalic . Eyes: normal orbit and globe. ENMT: normal examination of external ears. Chest: Lungs CTA, respirations non labored. Cardiovascular: regular rate and rhythm. Abdomen: soft, non distended, no tenderness, no mass or organomegaly, no hernia. Genitourinary: normal scrotum, normal testes, normal urethra, normal epididymis, normal vas deferens/spermatic cord. mild meatal stenosis Penis: normal shaft, normal glans. Prostate: normal prostate, estimated weight 20 gms, no hard nodule observed. Lymph Nodes: unremarkable palpation of the cervical area. Skin: warm, dry, no bruising. Psychiatric: cooperative, affect appropriate for age, normal judgement, euthymic mood. Assessment/Plan 1. 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 Gonzales for low free testosterone of 6.3 (range: 6.6-18.1) done on 07/23/2020. Testosterone level was 772 (range: 264-916). Last PSA done also on the same day w/ a result of 0.61. Educated pt. low free test. may be due to alcohol but pt. states he is very responsible w/ it. From today's, exam, mild meatal stenosis. CLIF today 20gms, no hard nodules. Pt. is doing well overall w/ his urination w/ no bothersome symptoms. No major concerns at this time. All questions/concerns were discussed. Pt. to call the office if heencounters any issues prior. Pt. acknowledges understanding. I have reviewed the previous health record information and history for this pt. from Dr. Rueda. I reviewed with this patietn the pathophysiology of low Free T which has been shown to be of increased risk in ETOH use COPD which I suspect in this patient and idnciated as much, as well as age related liver disease. I explained the embarrassingly poor data on free T and risk of prostate cancer but my unserstanding is that Free T may not be as easily studied in historical samples to allow historical assessment in cohort studies. In fact we have only in the last few decaddes begun to look at total T and prostate cancer risk in these large cohort frozen blood sample population historical cohorts. The role of Testosterone in lethal prostate cancer is well established. IMO the role of testosterone in the development of metastatic disease is poorly invesitgated let alone elicidated. I spent 45 minutes with this aptietn, I encourated smoking cesssation and he declined nicotine supplements or crazing adjusting attempts like Chantex. He was agreeable to return if he develops bothersome urinary complaints especially VH. He declined to quit smoking or decrease his ETOH use and the risks of these were discussed. CAGE negative on questioning. Follow-up With When Contact Information Mohit TAYLOR, Jakub Hook [address] [place] [address] [phone] Additional Instructions: PRN Patient Education Testosterone Ellen East , personally scribed for Dr. Rueda on 08/11/2020 08:54:12. . Documentation recorded by the Ellen doty, accurately reflects the services(s) I performed and decisions made by me. Authenticated by Dr. Rueda on 08/11/2020 09:04:14. Problem List/Past Medical History Ongoing Arthritis Atrial fibrillation Low testosterone Historical No qualifying data Procedure/Surgical History Fluoroscopic guidance for cardiac ablation. Medications folic acid 1 mg Tab, 1 mg= 1 tab(s), Oral, Daily Multi Vitamins oral tablet, Oral, Daily Allergies No Known Allergies Social History Tobacco 5-9 cigarettes (between 1/4 to 1/2 pack)/day in last 30 days Tobacco Use:., 08/11/2020 5-9 cigarettes (between 1/4 to 1/2 pack)/day in last 30 days Tobacco Use:. Cigarettes, Yes, 08/11/2020 Family History Asthma: Mother. Primary malignant neoplasm of lung: Mother and Father. Lab Results Test Name Test Result Date/Time PSA, External 0.61 ng/mL 07/23/2020 08:36 EDT Testosterone, External 772 07/23/2020 08:36 EDT Ambulatory Point of Care Results Bilirubin Urine Dipstick: Negative (08/11/20 08:31:00) Blood Urine Dipstick: Negative (08/11/20 08:31:00) Glucose Urine Dipstick: Negative (08/11/20 08:31:00) Ketones Urine Dipstick: Negative (08/11/20 08:31:00) Leukocytes Urine Dipstick: Negative (08/11/20 08:31:00) Nitrite Urine Dipstick: Negative (08/11/20 08:31:00) Protein Urine Dipstick: Negative (08/11/20 08:31:00) Specific [place] Urine Dipstick: 1.015 (08/11/20 08:31:00) Urine Appearance Urine Dipstick: Clear (08/11/20 08:31:00) Urine Color Urine Dipstick: Yellow (08/11/20 08:31:00) Urobilinogen Urine Dipstick: Normal 0.2-1 EU/dl (08/11/20 08:31:00) pH Urine Dipstick: 6.5 (08/11/20 08:31:00) [facility] Comment on above: Result Comment: Elec tronically Signed By: Mohit TAYLOR, Jakub Hook\.br\Date and Time Signed: 08/11/20 09:11 EDT\.br\Electronically Co-Signed By: Ellen Sun MA\.br\Date and Time Co-Signed: 08/11/20 08:54 EDT\.br\Electronically Co-Signed By: Christoph Jackson MD, Tim Cedillo\.br\Date and Time Co-Signed: 08/12/20 10:15 EDT Coding Summaryon 11-14-2019 Coding Summary CODING DATE: 11/14/2019 [facility] STATUS: Home PAYOR: [place] ADMIT DX: REASON FOR VISIT DX: J02.9 Acute pharyngitis, unspecified R09.81 Nasal congestion FINAL DX: PRINCIPAL: H66.93 Otitis media, unspecified, bilateral SECONDARY: J32.9 Chronic sinusitis, unspecified J02.9 Acute pharyngitis, unspecified PYMT PROC APC STAT DESCRIPTION DOCTOR NAME DATE NOTE: The code number assigned matches the documented diagnosis and / or procedure in the patient's chart. However, the narrative phrase printed from the coding software may appear abbreviated, or result in slightly different terminology. Coded By: Kelsey Hatch Date Saved: 11/14/2019 08:25 am [facility] ED Clinical Summaryon 2018 ED Clinical Summary [facility] ? Urgent Care [address] [place] [address] Clinical Summary PERSON INFORMATION Name: SOLOMON BROWN Age: 64 Years Sex: MALE : 1955 MRN: Acct#: Visit Reason: UC - Cough; UC - Sore Throat; SORE THROAT, CONGESTION Arrival: 11/12/2019 09:33:01 Discharge: 11/12/2019 10:02:00 LOS: 000 00:28 Check In: 11/12/2019 09:34:00 Checkout: 11/12/2019 10:02:00 Address: [address] [place] [id number] PCP: Manan Gonzales PROVIDER INFORMATION Provider Role Assigned Unassigned Miles TAYLORTatiana ED Nurse 11/12/2019 09:35:01 Junior Guevara ED PA 11/12/2019 09:35:34 VITALS INFORMATION Vital Sign Triage Latest Temperature Tympanic Temperature Temporal Artery Pulse Rate O2 Sat 97 % 97 % Respiratory Rate Blood Pressure /82 mmHg /82 mmHg MEDICAL INFORMATION Medications Given: Allergy Information: No known allergies PHYSICIAN DOCUMENTATION DISCHARGE INFORMATION: Discharge Disposition: Home Discharge Location: Home PATIENT EDUCATION INFORMATION Instructions: Otitis Media, Adult, Xqig-rx-Hhny Follow-Up: With: Address: When: Manan Gonzales [address] [place] [phone] Business (1) Comments: You have been provided a script for augmentin this is a broad spectrum antibiotic continue on this medication as written until gone Take the steroid daily as written until gone, take with food and or milk to help prevent gastric reflux Alternate tylenol and motrin for any pain or fevers Stay hydrated, drink plenty of fluids Recommend green tea with honey, this can help soothe throat Follow-up with primary care provider in 7-10 days sooner if worse. DIAGNOSIS: Bilateral otitis media; Sinusitis; Sore throat Patient Understands: Yes - Patient/family/careg iver verbalizes understanding of instructions given Comment: Normal [facility] ED Patient Summaryon 019 ED Patient Summary [facility] ? Urgent Care [address] [place], [place] [id number] PATIENT DISCHARGE INSTRUCTIONS Patient Information Name: SOLOMON BROWN Age: 64 Years Date of : 1955 Reason For Visit: UC - Cough; UC - Sore Throat; SORE THROAT, CONGESTION Arrival Time: 11/12/2019 09:33:01 Primary Care Physician: Manan Gonzales Attending Physician: Junior Guevara Comment: Patient Education With: Address: When: Manan Gonzales [address] [place] [phone] Business (1) Comments: You have been provided a script for augmentin this is a broad spectrum antibiotic continue on this medication as written until gone Take the steroid daily as written until gone, take with food and or milk to help prevent gastric reflux Alternate tylenol and motrin for any pain or fevers Stay hydrated, drink plenty of fluids Recommend green tea with honey, this can help soothe throat Follow-up with primary care provider in 7-10 days sooner if worse. Otitis Media, Adult Otitis media means that the middle ear is red and swollen (inflamed) and full of fluid. The condition usually goes away on its own. Follow these instructions at home: ? Take kmbx-hli-lfujivp and prescription medicines only as told by your doctor. ? If you were prescribed an antibiotic medicine, take it as told by your doctor. Do not stop taking the antibiotic even if you start to feel better. ? Keep all follow-up visits as told by your doctor. This is important. Contact a doctor if: ? You have bleeding from your nose. ? There is a lump on your neck. ? You are not getting better in 5 days. ? You feel worse instead of better. Get help right away if: ? You have pain that is not helped with medicine. ? You have swelling, redness, or pain around your ear. ? You get a stiff neck. ? You cannot move part of your face (paralyzed). ? You notice that the bone behind your ear hurts when you touch it. ? You get a very bad headache. Summary ? Otitis media means that the middle ear is red, swollen, and full of fluid. ? This condition usually goes away on its own. In some cases, treatment may be needed. ? If you were prescribed an antibiotic medicine, take it as told by your doctor. This information is not intended to replace advice given to you by your health care provider. Make sure you discuss any questions you have with your health care provider. Document Released: 04/30/2009 Document Revised: 12/03/2017 Document Reviewed: 12/03/2017 [employer] Interactive Patient Education ? 2019 [employer] Medication Information: The exam and treatment you received today in the [facility] Emergency Department were for an urgent problem and are not intended as complete care. It is important for you to follow up with a doctor, nurse practitioner, or physician?s social human services assistants for ongoing care. If your symptoms become worse or you do not improve as expected and you are unable to reach your usual health care provider, you should return to the Emergency Department, we are available 24 hours a day. For those patients who have received Radiology results, the interpretation of your X-ray as given to you by our Emergency Department physician is only a preliminary report. The Radiologist will review your films and if there is a change in the diagnosis you will be notified by phone. Please make sure you have provided a working phone number so we can reach you if necessary. In the event that you had a lab culture while you were a patient in the Emergency Department, you will be notified by phone if there is a need to change your antibiotic. Please make sure you have provided a working phone number so we can reach you if necessary. [facility] Emergency Department has provided you with a complete list of medications post discharge. Please inform your morgue attendant/provider of your visit and for further instruction on these medications. Any specific questions regarding your chronic medications and dosages should be discussed with your primary care physician(s) and/or pharmacist. New Medications [facility], [address] [place] [phone], [phone] amoxicillin-clavulan ate (Augmentin 875 mg-125 mg oral tablet) 1 tab(s) Oral Every 12 hours scheduled time for 10 Days. Refills: 0. predniSONE (predniSONE 20 mg oral tablet) 2 tab(s) Oral every day for 5 Days. Take with food to avoid gastric reflux or upset stomach. Refills: 0. Medications to Continue That Have Not Changed Other Medications azithromycin (Zithromax Z-Layton 250 mg oral tablet) 1 packet(s) Oral every day. as directed on package labeling. Refills: 0. multivitamin with minerals Oral every day. Visit Information Visit Diagnosis: Diagnoses This Visit Bilateral otitis media (H66.93) Sinusitis (J32.9) Sore throat (J02.9) UC - Cough ([id number]) UC - Sore Throat ([id number]) If you received any narcotics, sedation, or any other medication that causes drowsiness for the next 24 hours, unless otherwise directed: ? Do not drive a car. ? Do not operate machinery such as power tools, lawn mowers, drills, sewing machines, or stoves ? Avoid alcoholic beverages and drugs for allergies, nerves, or sleep ? Do not make important personal or business decisions or sign any legal documents Reason for Visit: sore throat, sinus pressure, productive cough, chills, achiness since sunday Allergies: Substance Reaction Symptoms Type Comments No known allergies Drug Vital Signs: Vitals and Measurements this Visit (last charted value for your 11/12/2019 visit) Vital Signs This Visit Temperature Temporal: 36.7 DegC Peripheral Pulse Rate: 65 bpm Respiratory Rate: 18 br/min Systolic Blood Pressure: 118 mmHg Diastolic Blood Pressure: 82 mmHg SpO2: 97 % Oxygen Therapy: Room air Measurements This Visit Height: 180.34 cm Weight: 70.31 kg Body Mass Index: 21.62 kg/m2 Problems List: Problem Onset Comments Atrial fibrillation Sinusitis Vertigo Major Tests and Procedures: The following procedures and tests were performed during your ED visit. Laboratory Radiology Cardiology Viruses or Bacteria What?s got you sick? Antibiotics only treat bacterial infections. Viral illnesses cannot be treated with antibiotics. When an antibiotic is not prescribed, ask your healthcare professional for tips on how to relieve symptoms and feel better. Usual Cause Illness Viruses Bacteria Antibiotic Needed Cold/Runny Nose NO Bronchitis/Chest Cold (in otherwise healthy children and adults) NO Whooping Cough Yes Flu NO Strep Throat Yes Sore Throat (except strep) NO Fluid in the middle ear (otitis media with effusion) NO Urinary Tract Infection Yes Antibiotics Aren?t Always the Answer www.cdc.gov/getsmart GET SMART Know When Antibiotics Work U.S. Department of Health and Human Services Centers for Disease Control and Prevention July 2014 [facility] Patient Handouton 11-12-2019 Patient Handout Patient Education Materials Follows: Otitis Media, Adult Otitis media means that the middle ear is red and swollen (inflamed) and full of fluid. The condition usually goes away on its own. Follow these instructions at home: ? Take lgwj-lrq-miyttdn and prescription medicines only as told by your doctor. ? If you were prescribed an antibiotic medicine, take it as told by your doctor. Do not stop taking the antibiotic even if you start to feel better. ? Keep all follow-up visits as told by your doctor. This is important. Contact a doctor if: ? You have bleeding from your nose. ? There is a lump on your neck. ? You are not getting better in 5 days. ? You feel worse instead of better. Get help right away if: ? You have pain that is not helped with medicine. ? You have swelling, redness, or pain around your ear. ? You get a stiff neck. ? You cannot move part of your face (paralyzed). ? You notice that the bone behind your ear hurts when you touch it. ? You get a very bad headache. Summary ? Otitis media means that the middle ear is red, swollen, and full of fluid. ? This condition usually goes away on its own. In some cases, treatment may be needed. ? If you were prescribed an antibiotic medicine, take it as told by your doctor. This information is not intended to replace advice given to you by your health care provider. Make sure you discuss any questions you have with your health care provider. Document Released: 04/30/2009 Document Revised: 12/03/2017 Document Reviewed: 12/03/2017 [employer] Interactive Patient Education ? 2018 [facility] Urgent Care Note- Provideron 11-12-2019 Urgent Care Note- Provider Patient: SOLOMON BROWN Age: 64 years Sex: MALE : 1955 Associated Diagnoses: Bilateral otitis media; Sinusitis; Sore throat Author: Junior Guevara Basic Information Time seen: Date & time 11/12/2019 09:35:00. History source: Patient. History limitation: None. History of Present Illness Patient is a 64-year-old male complaint of sore throat and congestion. Ongoing for approximately 10 days. Worse over the last 2 days. Patient states extremely sore throat over the last 2 days. No shortness of breath or difficulty breathing no fever or chills. Patient does complained of fatigue however states difficulty sleeping due to the sore throat. No other complaints or concerns. Patient with no known medication allergies. Review of Systems Constitutional symptoms: Negative except as documented in HPI. ENMT symptoms: Negative except as documented in HPI. Respiratory symptoms: Negative except as documented in HPI. Additional review of systems information: All other systems reviewed and otherwise negative. Health Status Allergies: Allergic Reactions (Selected) No known allergies. Medications: (Selected) Prescriptions Prescribed Zithromax Z-Layton 250 mg oral tablet: 1 packet(s), PO, Daily, as directed on package labeling, 6 tab(s), 0 Refill(s) Documented Medications Documented multivitamin with minerals: PO, Daily. Past Medical/ Family/ Social History Medical history: No active or resolved past medical history items have been selected or recorded.. Surgical history: Cardiac ablation using fluoroscopy guidance ([id number]).. Family history: No family history items have been selected or recorded.. Social history: Social & Psychosocial Habits Tobacco 11/17/2017 Smoking tobacco use: 10 or more cigarettes (1/ . Problem list: Active Problems (3) Atrial fibrillation Sinusitis Vertigo . Physical Examination Vital Signs Vital Signs 11/12/2019 9:35 EST Temperature Temporal 36.7 DegC Peripheral Pulse Rate 65 bpm Respiratory Rate 18 br/min Systolic Blood Pressure 118 mmHg Diastolic Blood Pressure 82 mmHg SpO2 97 % Oxygen Therapy Room air . General: Alert, no acute distress. Skin: Warm, dry. Head: Normocephalic, atraumatic. Eye: Normal conjunctiva. Ears, nose, mouth and throat: Erythematous TM bilaterally, strawberry red pharyngeal erythema . Respiratory: Lungs are clear to auscultation, respirations are non-labored, breath sounds are equal, Symmetrical chest wall expansion. Cardiovascular: Regular rate and rhythm. Back: Normal range of motion. Musculoskeletal: Normal ROM. Psychiatric: Cooperative, appropriate mood & affect. Medical Decision Making Differential Diagnosis: Viral pharyngitis, streptococcal pharyngitis, exudative pharyngitis, viral syndrome, upper respiratory infection. Findings of sinusitis bilateral otitis media sore throat. Patient treated with prednisone and Augmentin. Patient has been on these medications in the past without side effect. Home care instructions provided, pt stated understanding of home care instructions. Follow-up with primary care provider in 7-10 days sooner if worse. Impression and Plan Diagnosis Bilateral otitis media (GYV19-CM H66.93, Discharge, Medical) Sinusitis (XVE74-KH J32.9, Discharge, Medical) Sore throat (VYR39-JN J02.9, Discharge, Medical) Plan Prescriptions: Launch prescriptions Pharmacy: predniSONE 20 mg oral tablet (Prescribe): 40 mg = 2 tab(s), PO, Daily, for 5 day(s), Take with food to avoid gastric reflux or upset stomach, 10 tab(s), 0 Refill(s) Augmentin 875 mg-125 mg oral tablet (Prescribe): 1 tab(s), PO, q12hr, for 10 day(s), 20 tab(s), 0 Refill(s). Patient was given the following educational materials: Otitis Media, Adult, [id number]-[id number]-Gsyk. Follow up with: Manan Gonzales You have been provided a script for augmentin this is a broad spectrum antibiotic continue on this medication as written until gone Take the steroid daily as written until gone, take with food and or milk to help prevent gastric reflux Alternate tylenol and motrin for any pain or fevers Stay hydrated, drink plenty of fluids Recommend green tea with honey, this can help soothe throat Follow-up with primary care provider in 7-10 days sooner if worse. . Counseled: Patient, Regarding diagnosis, Regarding diagnostic results, Regarding treatment plan, Regarding prescription, Patient indicated understanding of instructions. Normal [facility] Rec[facility] 019 Urgent Care Record [facility] ? Urgent Care [address] [place], [place] [id number] PATIENT DISCHARGE INSTRUCTIONS Patient Information Name: SOLOMON BROWN Age: 64 Years Date of : 1955 Reason For Visit: UC - Cough; UC - Sore Throat; SORE THROAT, CONGESTION Arrival Time: 11/12/2019 09:34:00 Primary Care Physician: Manan Gonzales Attending Physician: Junior Guevara Comment: Visit Diagnosis: Diagnoses This Visit Bilateral otitis media (H66.93) Sinusitis (J32.9) Sore throat (J02.9) UC - Cough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
--- NOTE | 2024-02-14 08:16 | CT_ITS ---
[address] [address] Patient Name: SOOLMON CAGE MRN: [id number] date: 1955 Sex: M Assigned Patient Location: CT Current Patient Location: Accession/Order Number: [id number] Exam Date: 02/14/2024 08:35 Report Date: 02/15/2024 06:32 At the request of: JACOB BUSTOS Procedure: CT lung screening low-dose EXAMINATION: CT lung screening low-dose HISTORY: Nicotine Dependence F17.210 COMPARISON: No relevant comparison available. TECHNIQUE: Axial, Coronal, and Sagittal images were created without the administration of IV contrast material. Dose reduction techniques were achieved by using automated exposure control and/or adjustment of mA and/or kV according to patient size and/or use of iterative reconstruction technique. FINDINGS: LUNGS: Irregular shaped opacity within posterior right lower lobe 1.6 x 1.6 x 2.6 cm most suggestive of scarring. Scattered calcified granulomas. Mild-moderate emphysematous changes. PLEURA: No mass, effusion, or pneumothorax. VASCULATURE: No abnormality. CLINT: No mass or pathologic adenopathy. MEDIASTINUM: No mass or pathologic adenopathy. CARDIAC: No enlargement, pericardial thickening, or pericardial effusion. AORTA: Mild dilation of ascending aorta, 4.2 cm in diameter. CHEST WALL: No mass or axillary adenopathy BONES: No bone lesion or fracture. LIMITED ABDOMEN: Complex cysts versus mass within superior pole of left kidney, largest is 3.5 cm. Limited images of the upper abdomen. OTHER: Negative. CT/CT lung screening low-dose IMPRESSION: 1. Lung-RADS Category 4A- Suspicious. Findings for which additional diagnostic testing and/ or tissue sampling is recommended. 3 month LDCT; PET/CT may be used when there is a >= 8 mm solid component. 2. The triangular shaped soft tissue structure within posterior left lung base is most suggestive of scarring, however, short-term follow-up CT chest in 3 months is needed to document stability and to exclude malignancy. PET/CT could also be performed at this time. 3. Left renal complex cyst versus mass incompletely evaluated on today's study. CT abdomen and pelvis without and with IV contrast is recommended for further evaluation. Electronically authenticated by: HOLGER NIÑO Date: 02/15/2024 06:32
== END 2024-02-14 08:14 | disposition home or self-care (01) ==
LOC: CT 08:13
PROVIDERS: PCP Internal Medicine; Visit Provider Internal Medicine
DX: F17.210 Nicotine dependence, cigarettes, uncomplicated (principal); R91.8 Other nonspecific abnormal finding of lung field
CPT/HCPCS: 71271